=== PATIENT | male | born 1975 | race Hispanic/Latino ===

== ENCOUNTER 2018-01-09 12:22 | Inpatient (IN) | payer MEDICAID, OTHER ==
--- NOTE | 2018-01-09 13:18 | C.PDOC ---
History Of Present Illness 42-year-old male, is transferred to the emergency department from [facility] for psychiatric admission. Patient admits to . Denies any HI at this time. No other complaints at this time. Time Seen by Provider: 01/09/18 12:28 Chief Complaint (Nursing): Psychiatric Evaluation History Per: Patient History/Exam Limitations: no limitations Current Symptoms Are (Timing): Still Present Suicide/Self Injury Attempted (Context): None Severity: Mild Past Medical History Reviewed: Historical Data, Nursing Documentation, Vital Signs Vital Signs: Last Vital Signs Temp 98.0 F 01/09/18 12:27 Pulse 87 01/09/18 15:32 Resp 18 01/09/18 14:40 BP 127/89 01/09/18 15:32 Pulse Ox 96 01/09/18 13:21 - Medical History PMH: Asthma Family History: States: No Known Family Hx - Social History Hx Alcohol Use: No Hx Substance Use: Yes Review Of Systems Constitutional: Negative for: Fever Cardiovascular: Negative for: Chest Pain, Palpitations Respiratory: Negative for: Shortness of Breath Gastrointestinal: Negative for: Vomiting, Abdominal Pain Neurological: Negative for: Weakness, Numbness Physical Exam - Physical Exam Appears: Well, Non-toxic, No Acute Distress, Other (flat affect) Skin: Normal Color, Warm, Dry, No Rash Head: Normacephalic Eye(s): bilateral: PERRL Nose: Normal Oral Mucosa: Moist Lips: Normal Appearing Neck: Normal ROM Cardiovascular: Rhythm Regular, No Murmur Respiratory: Normal Breath Sounds, No Accessory Muscle Use Extremity: Normal ROM Neurological/Psych: Oriented x3 ED Course And Treatment O2 Sat by Pulse Oximetry: 96 (RA) Progress Note: Patient transferred from [facility] for psych evaluation. Case discussed and patient evaluated by burlap worker who agree to admission to psych Reassessment Condition: Unchanged - Physician Consult Information Physician Contacted: Aaron Madrigal Outcome Of Conversation: admit Disposition Discussed With : Aaron Madrigal Doctor Will See Patient In The: Hospital Counseled Patient/Family Regarding: Studies Performed, Diagnosis, Need For Followup - Disposition Disposition: HOSPITALIZED Disposition Time: 14:00 Condition: STABLE - Clinical Impression Clinical Impression: Depression, Suicidal ideations - Scribe Statement The provider has reviewed the documentation as recorded by the Scribe (Candy Field) All medical record entries made by the Scribe were at my direction and personally dictated by me. I have reviewed the chart and agree that the record accurately reflects my personal performance of the history, physical exam, medical decision making, and the department course for this patient. I have also personally directed, reviewed, and agree with the discharge instructions and disposition.
--- NOTE | 2018-01-09 13:53 | PCM.BM ---
<Deidra Mcn - Last Filed: 01/09/18 13:50> Treatment Plan Problems - Problems identified on initial assessmt Depression Date Initiated: 01/09/18 Time Initiated: 13:51 Assessment reference: NA Status: Active Substance Abuse Date Initiated: 01/09/18 Time Initiated: 13:51 Assessment reference: NA Status: Active Treatment assets and liabiliti Patient Assests: cooperative, physically healthy Patient Liabilities: substance abuse - Milieu Protocol Maintain good personal hygiene: daily Encourage regular showers, daily Remind patient to perform daily oral care, daily Assist patient to perform ADL's Conduct patient checks and document Observation sheet: Q15 minutes Maintain personal safety: every shift Educate patient to report safety concerns to staff, every shift Monitor environment for contraband/sharps Medication safety: Monitor for expected outcome, potential side effects: every shift, Assess barriers to learning: every shift, Assess readiness for medication education: every shift <Elvira Connelly - Last Filed: 01/11/18 10:53> Family Contact Family involvement: Famliy/SO not involved - Goals for Treatment Patient goals for treatment: "I [facility] to go to [facility] Discharge/Continuing Care - Education Needs Education Needs: Patient Medication, Patient Coping Skills, Patient Placement options, Patient Community resources - Discharge Discharge Criteria: Tolerates medication w/o severe side effects, No longer exhibiting s/s of withdrawal, Reduction of target symptoms Discharge to:: Substance Abuse Rehab - Treatment Team Participation Discussed with Family/SO: No Was Patient/Family/SO present at Treatment Team Meeting: Yes <Pierce Espinosa - Last Filed: 01/11/18 10:55> - Diagnosis (1) Bipolar II disorder Status: Acute Interventions: 01/11/18 10:54 * Assess/adjust medications daily and /or as needed * See patient on an individual basis 7x/week to assess level of manic behaviors and stability * Discuss risks, benefits, side effects and alternatives of medications * (2) Opioid use disorder, severe, dependence Status: Acute Interventions: 01/11/18 10:55 * Assess 7x/week regarding severity of withdrawal * Educate regarding risks, benefits, side effects and alternatives of medications * Use Motivational Interviewing for abstinence * Use CBT for relapse prevention * Medication management for withdrawal symptoms * Encourage medication assisted treatment *
[2018-01-09] MEDS ORDERED: Pneumococcal 23-Valent Vaccine IM ONE (15:02)
[2018-01-09 18:31] LABS: BARBITURATES, UR NEGATIVE (NEGATIVE); BENZODIAZEPINES, UR NEGATIVE (NEGATIVE); OPIATES, UR POSITIVE (NEGATIVE); PHENCYCLIDINE, UR NEGATIVE (NEGATIVE)
[2018-01-09] MEDS ORDERED: Bacitracin Ointment 30 GM TUBE TOP PRN (19:55)
[2018-01-09] MEDS ORDERED: Aluminum Hydroxide/Magnesium Hydroxide Susp (30 mL) PO PRN (22:31)
[2018-01-10] MEDS: buPROPion 150 mg/24 Hours XL Tab PO SCH (10:57)
--- NOTE | 2018-01-10 11:02 | PCM.PSYCH ---
Initial Psychiatric Evaluation - Initial Psychiatric Evaluation Type of Admission: Voluntary Legal Status: Capacity Chief Complaint (in patient's own words): "I was depressed and suicidal.' Patient's Reaction to Hospitalization: Voluntary History of Present Illness and Precipitating Events: Patient is a 42-year-old male, but , lives with his mother, with history of bipolar 2 disorder came to the ED with depressed mood and suicidal ideation. As per the patient, he is abusing increasing amount of heroin since last year. Almost 6 months ago, he lost his job and got from his . As per the patient he became increasingly depressed since then. He reports of abusing increasing amounts of heroin to cope with his depression. Yesterday he sniffed more than 10 bags of heroin, became increasingly depressed, developed suicidal ideation, so came to the hospital to get help. Patient reports of depressed mood , feelings of hopelessness and helplessness, poor sleep and poor appetite. Reports sometimes irritability and agitation, however he denies any auditory or visual hallucinations or any paranoia. He reports withdrawal symptoms from heroin including, nausea, abdominal cramps, sweating, headaches and anxiety. He denies any drugs or drinking. 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 He states that prior to this he has been clean for 14 years, but due to episodes of migraines treated with narcotic medication, he relapsed. He was admitted last year in [facility] with depression and suicidal ideation. He denies any history of suicidal attempt in the past. He went through a rehab last year at [facility], but he relapsed a few months after leaving rehab. He is currently seeing a psychiatrist in [facility]. Past medical history Asthma Current Medications: Active Medications Generic Name Dose Route Start Last Admin Trade Name Freq PRN Reason Stop Dose Admin Al Hydrox/Mg Hydrox/Simethicone 30 ml 01/09/18 22:31 Maalox 30 Ml PO TID PRN Indigestion / Heartburn Bacitracin 1 gm 01/09/18 19:55 Bacitracin TOP Q6H PRN bruised skin Bupropion HCl 150 mg 01/10/18 10:00 01/10/18 10:57 Wellbutrin Xl PO 150 mg DAILY OK Administration Clonidine HCl 0.1 mg 01/09/18 22:31 Catapres PO Q8 PRN COWS Score More or Equal to 5 Hydroxyzine HCl 50 mg 01/09/18 21:47 Atarax PO Q6H PRN Anxiety Ibuprofen 600 mg 01/09/18 21:47 Motrin Tab PO Q6H PRN Pain, moderate (4-7) Loperamide HCl 2 mg 01/09/18 22:31 Imodium PO Q8 PRN Diarrhea Ondansetron HCl 4 mg 01/09/18 22:31 Zofran Tab PO Q8 PRN Nausea/Vomiting Pseudoephedrine HCl 60 mg 01/09/18 22:31 Sudafed Tab PO QID PRN Nasal/Sinus Congestion Quetiapine Fumarate 200 mg 01/09/18 22:00 01/09/18 22:00 Seroquel PO 200 mg HS OK Administration Trazodone HCl 100 mg 01/09/18 21:47 Desyrel PO HS PRN Insomnia Past Psychiatric History - Past Psychiatric History Previous Treatment History: Inpatient Prior Professional Help: Rehab At [facility]: [place] Pertinent Medical Hx (Current Medical&Sleep Prob, Allergies): Allergies Allergy/AdvReac Type Severity Reaction Status Date / Time No Known Allergies Allergy Verified 01/09/18 12:31 QUEtiapine [SEROquel] 200 mg PO DAILY 01/09/18 Ziprasidone HCl [Geodon] 80 mg PO DAILY 01/09/18 buPROPion XL [Wellbutrin] 150 mg PO DAILY 01/09/18 Review of Systems - Review of Systems All systems: reviewed and no additional remarkable complaints except - Psychiatric Psychiatric: As Per HPI, Abnormal Sleep Pattern (decreased), Anxiety, Change in Appetite (decreased), Depression, Hopelessness, Suicidal Ideation. absent: Visual Hallucinations Mental Status Examination - Personal Presentation Personal Presentation: Looks stated age - Affect Affect: Constricted, Depressed - Motor Activity Motor Activity: Calm - Reliability in Providing Information Reliability in Providing Information: Good - Speech Speech: Organized - Mood Mood: Depressed, Anxious - Formal Thought Process Formal Thought Process: No Impairment - Obsessions/Compulsions Obsessions: No Compulsions: No - Cognitive Functions Orientation: Person, Place, Situation, Time Sensorium: Alert Attention/Concentration: Attentive Abstract Thinking: Minetto Estimate of Intelligence: Below average Judgement: Imparied, as evidence by: Poor judgement, Imparied, as evidence by: Lack of insight into illness Memory: Recent intact, as evidence by: Ability to recall events of the day - Risk Risk: Suicidal, Withdrawal, Diminished functioning - Strength & Assets Inventory Strength & Assets Inventory: Intelligence, Family support, Education, Employment history, Life experience, Cooperative - Limitations Limitations: Living alone DSM 5 DX - DSM 5 DSM 5 Diagnosis: Bipolar 2 disorder depressed severe without psychotic fx Opiate use disorder severe Opiate withdrawal - Recommended/Plan of Treatment Treatment Recommendations and Plan of Treatment: Bipolar 2 disorder depressed severe without psychotic fx -CBT -Psychoeducation -Supportive therapy, individual therapy -Start Wellbutrin 150 mg PO daily -Start Trazodone 100 mg PO Q HS -Start Seroquel 200 mg by mouth daily at bedtime -Start Neurontin 100 mg by mouth 3 times a day Opioid use disorder severe -CBT -Psychoeducation -Supportive therapy, individual therapy -Use [place] for abstinence Opioid withdrawal -CBT -Psychoeducation -Supportive therapy, individual therapy -Clonidine when necessary -Methadone taper -when necessary meds Asthma -Continue prescribed medications -Monitor for signs and symptoms - Smoking Cessation Smoking Cessation Initiated: No
[2018-01-11] MEDS: buPROPion 150 mg/24 Hours XL Tab PO SCH (09:43)
--- NOTE | 2018-01-11 10:53 | PCM.PYCHPN ---
Psychiatric Progress Note - Psychiatric Progress Note Patient Chief Complaint: "I was depressed and suicidal.' Mental Status Examination - Cognitive Function Orientation: Person, Place, Situation, Time - Mood Mood: Depressed, Anxious - Affect Affect: Constricted, Depressed - Formal Thought Process Formal Thought Process: No Impairment Goal/Treatment Plan - Goal/Treatment Plan Progress Toward Problem(s) and Goals/Treatment Plan: Bipolar 2 disorder depressed severe without psychotic fx -CBT -Psychoeducation -Supportive therapy, individual therapy -Start Wellbutrin 150 mg PO daily -Start Trazodone 100 mg PO Q HS -Start Seroquel 200 mg by mouth daily at bedtime -Start Neurontin 100 mg by mouth 3 times a day Opioid use disorder severe -CBT -Psychoeducation -Supportive therapy, individual therapy -Use [place] for abstinence Opioid withdrawal -CBT -Psychoeducation -Supportive therapy, individual therapy -Clonidine when necessary -Methadone taper -when necessary meds Asthma -Continue prescribed medications -Monitor for signs and symptoms
[2018-01-12] MEDS: buPROPion 150 mg/24 Hours XL Tab PO SCH (10:11)
--- NOTE | 2018-01-12 23:49 | PCM.PYCHPN ---
Psychiatric Progress Note - Psychiatric Progress Note Patient Chief Complaint: "I was depressed and suicidal.' Mental Status Examination - Cognitive Function Orientation: Person, Place, Situation, Time - Mood Mood: Depressed, Anxious - Affect Affect: Constricted, Depressed - Formal Thought Process Formal Thought Process: No Impairment Goal/Treatment Plan - Goal/Treatment Plan Progress Toward Problem(s) and Goals/Treatment Plan: Bipolar 2 disorder depressed severe without psychotic fx -CBT -Psychoeducation -Supportive therapy, individual therapy -Start Wellbutrin 150 mg PO daily -Start Trazodone 100 mg PO Q HS -Start Seroquel 200 mg by mouth daily at bedtime -Start Neurontin 100 mg by mouth 3 times a day Opioid use disorder severe -CBT -Psychoeducation -Supportive therapy, individual therapy -Use [place] for abstinence Opioid withdrawal -CBT -Psychoeducation -Supportive therapy, individual therapy -Clonidine when necessary -Methadone taper -when necessary meds Asthma -Continue prescribed medications -Monitor for signs and symptoms
[2018-01-13 05:54] VITALS: RESP 18; TEMP 96; O2SAT 99
[2018-01-13 08:48] VITALS: BP 119/81; PULSE 78
[2018-01-13] MEDS: buPROPion 150 mg/24 Hours XL Tab PO SCH (09:48)
--- NOTE | 2018-01-13 12:47 | PCM.PYCHDC ---
Mental Status Examination - Mental Status Examination Orientation: Person, Place, Situation, Time Memory: Intact Mood: Neutral Affect: Constricted Speech: Soft Attention: WNL Concentration: WNL Association: WNL Fund of Knowledge: WNL Formal Thought Process: No Impairment Description of patient's judgement and insight: good, fair Psychotic Thoughts and Behaviors: Denies any AVH Suicidal Ideation: No Current Homicidal Ideation?: No Discharge Summary - Discharge Note Reason for Hospitalization: Patient is a 42-year-old male, but , lives with his mother, with history of bipolar 2 disorder came to the ED with depressed mood and suicidal ideation. As per the patient, he is abusing increasing amount of heroin since last year. Almost 6 months ago, he lost his job and got from his . As per the patient he became increasingly depressed since then. He reports of abusing increasing amounts of heroin to cope with his depression. Yesterday he sniffed more than 10 bags of heroin, became increasingly depressed, developed suicidal ideation, so came to the hospital to get help. Patient reports of depressed mood , feelings of hopelessness and helplessness, poor sleep and poor appetite. Reports sometimes irritability and agitation, however he denies any auditory or visual hallucinations or any paranoia. He reports withdrawal symptoms from heroin including, nausea, abdominal cramps, sweating, headaches and anxiety. He denies any drugs or drinking. 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 He states that prior to this he has been clean for 14 years, but due to episodes of migraines treated with narcotic medication, he relapsed. He was admitted last year in [facility] with depression and suicidal ideation. He denies any history of suicidal attempt in the past. He went through a rehab last year at [facility], but he relapsed a few months after leaving rehab. He is currently seeing a psychiatrist in [facility]. Past medical history Asthma Consultations:: List each consultation separately and include: 1. Reason for request. 2. Findings. 3. Follow-up Summary of Hospital Course include:: 1. Description of specific treatment plan utilized for patients during their course of treatmen. 2. Summarize the time- course for resolution of acute symptoms and/or regressed behaviors. 3. Describe issues identified and worked on during hospitalization. 4. Describe medication utilized. 5. Describe medical problems identified and treated. 6. Reassessment of suicide risk Summary of Hospital Course: Patient is a 42-year-old male, but , lives with his mother, with history of bipolar 2 disorder came to the ED with depressed mood and suicidal ideation. As per the patient, he is abusing increasing amount of heroin since last year. Almost 6 months ago, he lost his job and got from his . As per the patient he became increasingly depressed since then. He reports of abusing increasing amounts of heroin to cope with his depression. Yesterday he sniffed more than 10 bags of heroin, became increasingly depressed, developed suicidal ideation, so came to the hospital to get help. Patient reports of depressed mood , feelings of hopelessness and helplessness, poor sleep and poor appetite. Reports sometimes irritability and agitation, however he denies any auditory or visual hallucinations or any paranoia. He reports withdrawal symptoms from heroin including, nausea, abdominal cramps, sweating, headaches and anxiety. He denies any drugs or drinking. 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 He states that prior to this he has been clean for 14 years, but due to episodes of migraines treated with narcotic medication, he relapsed. He was admitted last year in [facility] with depression and suicidal ideation. He denies any history of suicidal attempt in the past. He went through a rehab last year at [facility], but he relapsed a few months after leaving rehab. He is currently seeing a psychiatrist in [facility]. Past medical history Asthma - Diagnosis (1) Bipolar II disorder Current Visit: Yes Status: Acute (2) Opioid use disorder, severe, dependence Current Visit: Yes Status: Acute - Final Diagnosis (DSM 5) Condition upon Discharge: STABLE Disposition: HOME/ ROUTINE Follow-up Treatment Plan: Bipolar 2 disorder depressed severe without psychotic fx -CBT -Psychoeducation -Supportive therapy, individual therapy -Start Wellbutrin 150 mg PO daily -Start Trazodone 100 mg PO Q HS -Start Seroquel 200 mg by mouth daily at bedtime -Start Neurontin 100 mg by mouth 3 times a day Opioid use disorder severe -CBT -Psychoeducation -Supportive therapy, individual therapy -Use [place] for abstinence Opioid withdrawal -CBT -Psychoeducation -Supportive therapy, individual therapy -Clonidine when necessary -Methadone taper -when necessary meds Asthma -Continue prescribed medications -Monitor for signs and symptoms Prescriptions/Medication Reconciliation: buPROPion XL [Wellbutrin XL] 150 mg PO DAILY #30 t24 Gabapentin [Neurontin] 100 mg PO BID #60 cap QUEtiapine [SEROquel] 200 mg PO DAILY #30 tab traZODone [Desyrel] 100 mg PO HS PRN #30 tab PRN Reason: Insomnia
== END 2018-01-13 13:57 | disposition home or self-care (01) | DRG 745 ==
LOC: C.ER 12:22 → C.5E 12:41
PROVIDERS: ADMIT Psychiatry & Neurology Psychiatry; ATTEND Psychiatry & Neurology Psychiatry
PROC: HZ2ZZZZ Detoxification Services for Substance Abuse Treatment (ICD-10-PCS; principal; 2018-01-09)
DX: F11.23 Opioid dependence with withdrawal (principal); F31.4 Bipolar disorder, current episode depressed, severe, without psychotic features; F41.9 Anxiety disorder, unspecified; J45.909 Unspecified asthma, uncomplicated